=== PATIENT | male | born 1950 | race Caucasian/White ===

== ENCOUNTER → 2017-04-12 | Outpatient (CLI) | payer MEDICARE ==
[~2017-04-12] MED LIST: LISINOPRIL10 MG PO; MULTIVITAMINS1 EAC7 PO; TERBUTALINE SU2.5 MG PO; VITAMIN D31000 UNIT PO; ZOCOR40 MG PO; [UNRECOGNIZED DRUG - OTHER] PO
== END ==
LOC: RAD 12:30
PROVIDERS: ATTEND Family Medicine
DX: I80.8 Phlebitis and thrombophlebitis of other sites (principal)
CPT/HCPCS: 93970